=== PATIENT | male | born 1965 | race Caucasian/White ===

== ENCOUNTER 2022-12-13 10:20 | Outpatient (CLI) | payer BC, SELFPAY | END 2022-12-13 10:21 | disposition home or self-care (01) | PROVIDERS: PCP Family Medicine; Visit Provider Family Medicine | DX: Z00.00 Encounter for general adult medical examination without abnormal findings (principal); I10 Essential (primary) hypertension; E78.5 Hyperlipidemia, unspecified | CPT/HCPCS: 80048; 80061 ==

== ENCOUNTER 2024-01-12 08:43 | Outpatient (CLI) | payer BC, SELFPAY | END 2024-01-12 08:44 | disposition home or self-care (01) | PROVIDERS: PCP Family Medicine; Visit Provider Family Medicine | DX: Z00.00 Encounter for general adult medical examination without abnormal findings (principal); I10 Essential (primary) hypertension; E78.5 Hyperlipidemia, unspecified; E78.00 Pure hypercholesterolemia, unspecified; D64.9 Anemia, unspecified; K76.0 Fatty (change of) liver, not elsewhere classified; Z12.5 Encounter for screening for malignant neoplasm of prostate | CPT/HCPCS: 80053; 80061; G0103 ==

== ENCOUNTER 2025-02-11 08:28 | Outpatient (CLI) | payer MEDICARE, SELFPAY | END 2025-02-11 08:29 | disposition home or self-care (01) | PROVIDERS: PCP Family Medicine; Visit Provider Family Medicine | DX: K76.0 Fatty (change of) liver, not elsewhere classified (principal); R74.8 Abnormal levels of other serum enzymes; Z12.5 Encounter for screening for malignant neoplasm of prostate; E78.00 Pure hypercholesterolemia, unspecified | CPT/HCPCS: 80053; 80061; 86803; G0103 ==

== ENCOUNTER 2025-04-20 19:50 | Emergency (ER) | payer MEDICARE, SELFPAY ==
--- OUTSIDE RECORDS SUMMARY | 2025-04-20 19:53 | XMS_ITS | Clinical Summary ---
Author Organization [facility] Address [address] [facility] [place] [address] Care Team Providers Care Hedis Coordinator Name Role Phone Stephen Lovett MD Unavailable [phone] Ralph Gonzalez MD Primary Care Provider [phone] Stephen Lovett MD Unavailable [phone] Allergies Active AllergyReactionsCriticalityNoted DateCommentsChlorthalidoneOther (See Comments)High01/26/2021 Other Reaction(s): Passed out, seizures Low BP Medications MedicationSigDispense QuantityRefillsLast FilledStart DateEnd DateStatus valsartan (DIOVAN) 160 MG tablet Take 320 mg by mouth dailyActive omeprazole (PRILOSEC) [address] capsule Take 40 mg by mouth dailyActive sertraline (ZOLOFT) 100 MG tablet Take 200 mg by mouth dailyActive Vitamin D3 (CHOLECALCIFEROL) 25 mcg (1000 units) tablet Take 25 mcg by mouth dailyActive MAGNESIUM PO Take 1 tablet by mouth dailyActive fish oil-omega-3 fatty acids 1000 MG capsule Take 1 g by mouth dailyActive acetaminophen (TYLENOL) 325 MG tablet Take 325-650 mg by mouth every 6 hours as needed for mild painActive amLODIPine (NORVASC) 2.5 MG tablet Take 2.5 mg by mouth dailyActive atorvastatin (LIPITOR) 40 MG tablet Take 40 mg by mouth dailyActive aspirin 81 MG EC tablet Take 81 mg by mouth dailyActive azithromycin (ZITHROMAX) 250 MG tablet TAKE 2 TABLET BY ORAL ROUTE EVERY DAY FOR 1 DAY THEN 1 TABLET (250 MG) BY ORAL ROUTE ONCE DAILY FOR4 DAYS FOR BRONCHITISActive predniSONE (DELTASONE) 10 MG tablet TAKE 4 TABLETS BY MOUTH DAILY FOR 2 DAYS, THEN DECREASE BY 1 TABLET EVERY 3RD DAY UNTIL OFFActive ipratropium - albuterol 0.5 mg/2.5 mg/3 mL (DUONEB) 0.5-2.5 (3) MG/3ML neb solution Indications:Chronic obstructive pulmonary disease, unspecified COPD type (H)Take 1 vial (3 mLs) by nebulization every 6 hours as needed for shortness of breath, wheezing or cough. 90 mL 5Active albuterol (PROAIR HFA/PROVENTIL HFA/VENTOLIN HFA) 108 (90 Base) MCG/ACT inhaler Indications:Chronic obstructive pulmonary disease, unspecified COPD type (H) Inhale 2 puffs into the lungs every 4 hours as needed for shortness of breath, wheezing or cough. 18 g 1105Active fluticasone-salmeterol (ADVAIR) 500-50 MCG/ACT inhaler Indications:Chronic obstructive pulmonary disease, unspecified COPD type (H) Inhale 1 puff into the lungs 2 times daily. 1 each 5Active Active Problems ProblemNoted DateDiagnosed UkmyQzpogebkohz01/24/3516Tmxpuxjyqwbq22/24/2021 Seizure-like vsckoucs92/24/2021Left inguinal ytffya1106/18/2013 Family History Medical HistoryRelationCommentsCancerMotherllung, liver all overRelationStatus CommentsMother Social History Tobacco UseTypesPacks/DayYears UsedDateSmoking Tobacco: FormerCigarettes Smokeless Tobacco: CurrentChew Tobacco Cessation:Ready to Q uit: Not Asked; Counseling Given: Yes Alcohol UseStandard Drinks/WeekCommentsYes0 (1 standard drink = 0.6 oz pure alcohol)3 beers per dayPHQ-2AnswerDate RecordedPHQ-2 Fyybf559dolescent EducationAnswerDate RecordedGetting School Help NeededNot on file02/02/2023Sex and Gender InformationValueDate RecordedSex Assigned at BirthNot on fileLegal BvwMmyb71/04/2012 3:26 AM CSTGender IdentityNot on fileSexual OrientationNot on file Last Filed Vital Signs Vital SignReadingTime TakenCommentsBlood Jleorvmj309/8707 7:22 AM CDT Ofskm624111/26/2024 7:22 AM DHWKooawlmhouq82.1 ??C (98.7 ??F)10/27/2020 11:41 AM CDTRespiratory Kjli357405/20/2023 2:42 PM CSTOxygen Mupwlgpcaq30%11/26/2024 7:22 AM CDTInhaled Oxygen Concentration--Faxuyi60.8 kg (187 lb)11/26/2024 7:22 AM CDT Enjqjf720.3 cm (5' 11)05/20/2023 2:42 PM CSTBody Mass Index26.0805/20/2023 2:42 PM RATER ASSOCIATE Plan of Treatment Health MaintenanceDue DateLast DoneCommentsADVANCE CARE FXRGGGBN1965ANNUAL REVIEW OF HM MUNVUA30 1965COPD ACTION PLAN1965CT KQFEZNTSPLBC1965 FIT1965FLEX SIG1965 6029PMTZT1965sDNA (Cologuard)1965YEARLY PREVENTIVE VISIT04/23/19684685STFDCINTVYD66/20/1975COLORECTAL CANCER SCREENING 1975HIV ECLLTEVNW25/20/1980HEPATITIS C JPDAJSUFV89/20/1983HEPATITIS B VACCINE (1 of 3 - 19+ 3-dose series)1984DIABETES ZUKFUFFCM07/25/2024 10/27/2020, 10/26/2020, 10/26/2020, Additional history existsLUNG CANCER KTVQSLPNN52/23/5585914COVID-19 VACCINE ( season)2025 02/13/2024, 04/01/2023, 04/02/2021INFLUENZA VACCINE (#1), 3DTAP/TDAP/TD VACCINE (2 - Td or Tdap), 07/12/1999 PNEUMOCOCCAL VACCINE 50+ ISOSQOyeugkwzv96/28/6810IMHALWOQQWDdetqnfhz95/16/2024 ZOSTER OVBTRZMHyekzfvzs24/05/2024, 3PHQ-2 (once per calendar year) Vauzbvqvf71/25/2025HPV VACCINE (No Doses Required)CompletedMENINGITIS VACCINE Aged OutNo longer eligible based on patient's age to complete this topic Medical Devices ImplantedTypeAreaManufacturerDevice IdentifierShelf Expiration DateModel / Serial / LotMesh Ultrapro [id number] Implanted:Qty: 1 on 07/06/2013 [facility] AudioCatch [facility]05/03/2018UMR3 / / [id number] Procedures Procedure NamePriorityDate/TimeAssociated DiagnosisCommentsCT CHEST LUNG CANCER SCREEN LOW DOSE KCWOLIPTtukigs90/23/2024 2:33 PM CDT Personal history of tobacco use PFT GENERAL LAB ETICFTLJjjvzck69/16/2024 1:16 PM RATER ASSOCIATE COPD (chronic obstructive pulmonary disease) (H) BASIC METABOLIC AMQUYLrkphrd11/25/2021 5:12 AM CDT Seizure-like activity (H) from Last 3 Months or Most Recently Relevant to Health Maintenance Results * CT Chest Lung Cancer Scrn Low Dose wo (11/25/2023 2:33 PM CDT)Anatomical RegionLateralityModalityChest, SUBRAD CT BODY, UMP CT CHEST, RAD CTComputed TomographySpecimen (Source)Anatomical Location / LateralityCollection Method / VolumeCollection TimeReceived Time Impressions 11/25/2023 3:14 PM CDT Impression: 1. ACR Assessment Category (2021): ??Lung-RADS Category 2. Benign appearance or behavior. ?? Recommendation: ??Lung-RADS Category 2. Benign appearance or behavior. Recommendation: ??continue annual screening with Lung cancer screening CT (please order exam code [id number]). 2. Significant Incidental Finding(s): ??Category S: No. 3. Avoidance of tobacco smoke is strongly advised. Please consider referral for smoking cessation to [facility] Medication Therapy Management (MTM) if clinically appropriate. Download the LungRADS 2021 Assessment Categories table at this site: [email or web address] I have personally reviewed the examination and initial interpretation and I agree with the findings. ROSEMARY DAWSON MD Narrative 11/25/2023 3:[address] Low Dose Lung Cancer Screening History: ??Personal history of tobacco use, Screening for lung cancer. Number of packs-year of smokin Current or former smoker?: Former If former, number of years since quit?: 14 Comparison: Chest radiograph 05/20/2023 Technique: Helical acquisition low dose CT chest. Images reviewed in lung, soft tissue and bone windows. DLP: 92 (mGy*cm) CTDIvol: 2.28 (mGy) Findings: [All follow up of nodules are based on ACR guidelines for lung cancer screening and measurements of each nodule size must be the mean of the longest axial plane measurement by its perpendicular measured to the nearest decimal and rounded up to the nearest whole number. ] Nodules: 5 The largest and/or fastest 3 of these nodule(s) are as follows: - 5 ??mm solid nodule in the right lower lobe on series: ??4 image: 255. - 6 ??mm calcified nodule in the right lower lobe on series: ??4 image: 264. - 3 ??mm solid nodule in the right middle lobe on series: ??4 image: 205. Emphysema: None Coronary artery calcium: mild Additional findings: Atherosclerotic ossifications of the aortic arch. Authorizing ProviderResult TypeResult StatusMichael Kristofer Lovett MDIMG CT ORDERABLESFinal Result * General PFT Lab (Please always keep checked) (05/20/2023 1:16 PM RATER ASSOCIATE)Component ValueRef RangeTest MethodAnalysis TimePerformed AtPathologist Signature FVC-Pred4.49LBREEZE PFTFVC-Pre3.67LBREEZE PFTFVC-%Pred-Pre81%BREEZE PFT FEV1-Pre1.55LBREEZE PFTFEV1-%Pred-Pre44%BREEZE SBJHEO0XYV-Jncs59%BREEZE PFT BFJ0MRH-Yiw69%BREEZE PFTFEFMax-Pred9.59L/secBREEZE PFTFEFMax-Pre5.27L/sec BREEZE PFTFEFMax-%Pred-Pre54%BREEZE XRLNKD8673-Lewx2.02L/secBREEZE PFT EAC6388-Qkr7.44L/secBREEZE WEOHOF1113-%Pred-Pre14%BREEZE PFTExpTime-Pre12.88 secBREEZE PFTFIFMax-Pre7.08L/secBREEZE PFTVC-Pred4.64LBREEZE PFTVC-Pre3.45L BREEZE PFTVC-%Pred-Pre74%BREEZE PFTIC-Pred3.30LBREEZE PFTIC-Pre2.84LBREEZE PFT IC-%Pred-Pre86%BREEZE PFTERV-Pred1.65LBREEZE PFTERV-Pre0.61LBREEZE PFT ERV-%Pred-Pre36%BREEZE ISKTCT7TGD4-Jgul32%BREEZE ZYZVRT0UET5-Sbv93%BREEZE PFT FRCPleth-Pred3.65LBREEZE PFTFRCPleth-Pre3.59LBREEZE PFTFRCPleth-%Pred-Pre98% BREEZE PFTRVPleth-Pred2.21LBREEZE PFTRVPleth-Pre2.98LBREEZE PFT RVPleth-%Pred-Ari732%BREEZE PFTTLCPleth-Pred7.33LBREEZE PFTTLCPleth-Pre6.43L BREEZE PFTTLCPleth-%Pred-Pre87%BREEZE PFTDLCOunc-Pred28.74ml/min/mmHgBREEZE PFTDLCOunc-Pre21.05ml/min/mmHgBREEZE PFTDLCOunc-%Pred-Pre73%BREEZE PFTVA-Pre 5.54LBREEZE PFTVA-%Pred-Pre81%BREEZE SQBHRZ8BFL-Zotb97%BREEZE HKQZCQ0BCY-Hbd84 %BREEZE PFTAnatomical RegionLateralityModalityOtherSpecimen (Source)Anatomical Location / LateralityCollection Method / VolumeCollection TimeReceived Time 05/20/2023 1:16 PM RATER ASSOCIATE Narrative 05/21/2023 7:24 PM RATER ASSOCIATE The FEV1 and FEV1/FVC ratio are below normal limits, but the FVC is within normal limits. The diffusing capacity is below normal limits. However, the diffusing capacity was not corrected for the patient's hemoglobin. TLC and RV are within normal limits. IMPRESSION: Moderate airflow obstruction. Mild diffusion defect. However, the diffusing capacity was not corrected for the patient's hemoglobin. Normal lung volumes. ?This interpretation has been electronically signed: ??MARSHA CHOWDARY 05/21/2023 ??07:01:14 PM? Authorizing ProviderResult TypeResult StatusMichael Kristofer Lovett [facility] ORDERABLESFinal Result * (ABNORMAL) Basic metabolic panel (10/27/2020 5:12 AM CDT)ComponentValueRef RangeTest MethodAnalysis TimePerformed AtPathologist TprofwpzaLrxlrp177(L)133 - 144 mmol/L10/27/2020 6:40 AM [facility]ALTHPotassium3.73.4 - 5.3 mmol/L10/27/2020 6:40 AM [facility]ALTHChloride9694 - 109 mmol/L10/27/2020 6:40 AM [facility]Comment:Results confirmed by repeat testCarbon Caevwtl2971 - 32 mmol/L10/27/2020 6:40 AM [facility]ALTHAnion Gap43 - 14 mmol/L10/27/2020 6:40 AM [facility]ALTHGlucose108(H)70 - 99 mg/dL10/27/2020 6:40 AM [facility]ALTHUrea Bgfozppo516 - 30 mg/dL10/27/2020 6:40 AM [facility]ALTHCreatinine0.740.66 - 1.25 mg/dL10/27/2020 6:40 AM [facility]ALTHGFR Estimate>90>60 mL/min/{1.73_m2}10/27/2020 6:40 AM [facility]ALTHComment: Non GFR Calc Starting 04/21/2018, serum creatinine based estimated GFR (eGFR) will be calculated using the Chronic Kidney Disease Epidemiology Collaboration (CKD-EPI) equation. GFR Estimate If Black>90>60 mL/min/{1.73_m2}10/27/2020 6:40 AM [facility]Comment: GFR Calc Starting 04/21/2018, serum creatinine based estimated GFR (eGFR) will be calculated using the Chronic Kidney Disease Epidemiology Collaboration (CKD-EPI) equation. Calcium8.98.5 - 10.1 mg/dL10/27/2020 6:40 AM [facility]ITALpecimen (Source)Anatomical Location / LateralityCollection Method / VolumeCollection TimeReceived NchkBfzxt26/25/2021 5:12 AM CDT10/27/2020 5:13 AM CDT Narrative Authorizing ProviderResult TypeResult StatusPatricia WHITT - BLOOD ORDERABLESFinal ResultPerforming OrganizationAddressCity/State/ZIP CodePhone Number [facility] [address] [id number] [phone] from Last 3 Months or Most Recently Relevant to Health Maintenance Insurance * Guarantor: Margarita Malave TypeRelation to PatientDate of BirthPhone Billing AddressPersonal/JwjufzNedh1965 [address] [place] [address] * Guarantor: Margarita Malave TypeRelation to PatientDate of BirthPhone Billing AddressPersonal/PifxyrIhtk1965 [address] [place] [address] Advance Directives For more information, please contact: [phone] * Full Code (Latest Code Status on File) Date ActivatedDate InactivatedComments10/27/2020 11:23 AMQuestionAnswerComments Code status determined by:* Discussion with patient/ legal decision maker * Full Code Date ActivatedDate InactivatedComments10/26/2020 12:34 PM10/27/2020 11:23 AMAll basic and advanced life-sustaining interventions are performed as appropriate QuestionAnswerCommentsCode status determined by:* Discussion with patient/ legal decision maker Care Teams Team MemberRelationshipSpecialtyStart DateEnd Date Ralph Gonzalez MD [facility] [address] [place] [address] PCP - GeneralFamily Medicine10/22/23 Stephen Lovett MD [address] [place] [address] MDCritical Care02/05/23 Stephen Lovett MD [address] [place] [address] Assigned Pulmonology Ztjftzqj49/23/24
--- OUTSIDE RECORDS SUMMARY | 2025-04-20 19:53 | XMS_ITS | Clinical Summary ---
Author Organization [facility] Address [address] [place] [address] Care Team Providers Care Weigher And Charger Name Role Phone Jacky Gonzalez MD Primary Care Provider [phone] Allergies Active AllergyReactionsCriticalityNoted DateCommentsChlorthalidoneHypokalemia High01/26/2021 Low BP Medications MedicationSigDispense QuantityRefillsLast FilledStart DateEnd DateStatus omeprazole (PRILOSEC) 20 mg Delayed-Release capsule Indications:Iron deficiency anemia, unspecified iron deficiency,Lower abdominal pain,Colon polyp,Diverticulosis of large intestine without hemorrhageTake 40 mg by mouth once daily before a meal. 30 capsule ctive valsartan (DIOVAN) 160 mg tablet Take 160 mg by mouth once daily.Active amLODIPine (Norvasc) 2.5 mg tablet Take 2.5 mg by mouth once daily.Active atorvastatin (LIPITOR) 40 mg tablet Take 40 mg by mouth once daily.Active sertraline (ZOLOFT) 100 mg tablet Take 100 mg by mouth once daily.Active aspirin (ECOTRIN) 81 mg enteric coated tablet Take 81 mg by mouth once daily.Active ibuprofen (ADVIL; MOTRIN) 600 mg tablet Indications:Complex tear of medial meniscus, current injury, right knee, initial encounterTake 1 Tablet (600 mg) by mouth every 6 hours if needed for Pain. Maximum of 3200 mg in 24 hours. 30 Tablet 01/31/2021ctive Crutch Indications:Complex tear of medial meniscus, current injury, right knee, initial encounterFor home use. 2 Each 01/31/2021ctive traMADoL (ULTRAM) 50 mg tablet Indications:Complex tear of medial meniscus, current injury, right knee, initial encounterTake 1 Tablet (50 mg) by mouth every 6 hours if needed for Pain. 15 Tablet 1Active Active Problems ProblemNoted DateDiagnosed DateComplex tear of medial meniscus, current injury, right knee, initial gbenicojn55/28/2021Acute gout of left foot05/22/2018 Essential ibxmqstqknox96/18/2019Colon polyp03/24/2015 Overview (03/24/2015): Colonoscopy 03/2015 polyps repeat in 5 years Family History Medical HistoryRelationNameCommentsUnknownFatherUnknownMotherRelationNameStatus CommentsFatherAliveMotherDeceased Social History Tobacco UseTypesPacks/DayYears UsedDateSmoking Tobacco: MclbsaQoncwtraze6Ypyg: 05/05/2009Smokeless Tobacco: Current Tobacco Cessation:Ready to Q uit: No Alcohol UseStandard Drinks/WeekCommentsYes0 (1 standard drink = 0.6 oz pure alcohol)Sex and Gender InformationValueDate RecordedSex Assigned at BirthNot on fileLegal XzyJuhh8305/18/2012 6:18 AM CSTGender IdentityNot on fileSexual OrientationNot on file Last Filed Vital Signs Vital SignReadingTime TakenCommentsBlood Fknzobfj947/9701/31/2021 10:29 AM CDTDr Tai aware of BP,norah Gonzalez to send wksoBkxlk6852/29/2021 10:29 AM CDT Jtnnlhzgpco85.9 ??C (98.4 ??F)01/31/2021 10:29 AM CDTRespiratory Rate18 01/31/2021 10:29 AM CDTOxygen Esvgwyfwgj90%01/31/2021 10:29 AM CDTInhaled Oxygen Concentration--Czvlxw55.7 kg (169 lb)01/31/2021 7:45 AM WIKXtmqkh921.3 cm (5' 11)01/26/2021 11:00 AM CDTBody Mass Index23.57001/26/2021 11:00 AM CDT Plan of Treatment Health MaintenanceDue DateLast DoneCommentsTetanus uewbfpx7504/23/1976Depression screening for age 12+1977HIV for age 15-6504/23/1980Hepatitis C screening for age 18-7904/23/1983Hepatitis B series for 19+ (1 of 3 - 19+ 3-dose series) 1984Lipids for age 45-7504/23/2010Pneumococcal series for age 50+ (1 of 1 - PCV)2015Zoster (shingles) series for age 50+ (1 of 2)2015BMI (ht and wt on same day) for age 18+COVID-19 vaccine series (1 - 2024-26 season)2025Influenza Vaccine (#1)2025olonoscopy through age RSV vaccine for adults or (1 - 1-dose 75+ series)2040 Insurance * Guarantor: Margarito Malave TypeRelation to PatientDate of BirthPhone Billing AddressPersonal/XjrjrrTxav1965 [address] [place] [address] * Guarantor: Margarito Malave TypeRelation to PatientDate of BirthPhone Billing AddressPersonal/IicborMhon[address] [place] [address] [place] [address] Advance Directives * Full Code (Latest Code Status on File) Date ActivatedDate InactivatedComments01/31/2021 7:28 AM01/31/2021 2:27 PMQuestion AnswerCommentsCode Status Discussion:* Not Discussed Care Teams Team MemberRelationshipSpecialtyStart DateEnd Date Jacky Gonzalez MD PCP - [facility]/26/21
[2025-04-20 20:00] VITALS: BP 165/96; PULSE 91; RESP 16; TEMP 36.8; O2SAT 95; BMI 25.1
--- NOTE | 2025-04-20 20:39 | ED.SYNCOPE ---
HPI - Syncope General Chief Complaint: Syncope/Fainted Stated Complaint: COPD, passed out Time Seen by Provider: 04/20/25 19:56 History of Present Illness HPI narrative: This 59-year-old male comes in with his reporting a brief loss of consciousness that happened when he had a coughing fit. He states that he has COPD and did quit smoking about 20 years ago. He states over the past 2 or 3 years he does have occasions where he coughs up a fair amount of mucus. Today he had uncontrolled coughing to where he grew lightheaded and had brief loss of consciousness. When he did lose consciousness his states that he stopped coughing and very quickly recovered. He states that he feels normal now and arrives here with normal vital signs. He reports that he does use a cough medicine as needed. Related Data Home Medications ?Medication ?Instructions ?Recorded ?Confirmed ipratropium 0.5 mg-albuterol 3 mg 3 ml inhalation QID PRN 09/22/24 04/20/25 (2.5 mg base)/3 mL nebulization soln fluoride (sodium) 1.1 % dental gel PO QPM 02/11/25 02/11/25 fluticasone 500 mcg-salmeterol 50 1 ea inhalation BID 02/11/25 04/20/25 mcg/dose blistr powdr for inhalation Previous Rx's ?Medication ?Instructions ?Recorded albuterol sulfate 90 mcg/actuation 2 puff inhalation Q6H PRN 05/24/24 aerosol inhaler shortness of breath or wheezing #8.5 grams amlodipine 10 mg tablet 10 mg PO QDAY #90 tabs 02/11/25 atorvastatin 40 mg tablet 40 mg PO QPM #90 tabs 02/11/25 sertraline 100 mg tablet 200 mg (2 x 100 mg) PO QDAY #180 02/11/25 tabs spironolactone 25 mg tablet 25 mg PO QDAY #90 tabs 02/11/25 valsartan 320 mg tablet 320 mg PO DAILY #90 ea 02/11/25 omeprazole 40 mg capsule,delayed 40 mg PO QDAY #90 caps 02/14/25 release azithromycin 250 mg tablet See Rx Instructions PO .COMPLEX #6 03/14/25 tabs prednisone 20 mg tablet 40 mg (2 x 20 mg) PO QDAY #10 tabs 03/14/25 Allergies Allergy/AdvReac Type Severity Reaction Status Date / Time chlorthalidone Allergy Severe Passed Verified 02/11/25 07:53 out, seizures Review of Systems Status of ROS: Reports: 10 or more systems reviewed and unremarkable except as noted in History and below Narrative: Constitutional: No fevers, no weight gain or loss. Eyes: No discharge. No vision changes. HENT: No congestion, no sore throat, no ear pain. Cardiovascular: No chest pain, no palpitations. Respiratory: No shortness of breath, no wheezes. Coughing as described above. Gastrointestinal: No abdominal pain, no vomiting, no diarrhea. Genitourinary: No dysuria, no hematuria. Musculoskeletal: Normal range of motion. Skin: No rashes, no pruritis. Neurological: No dizziness, weakness, sensory change, speech change. Endo/Heme/Allergies: No bruising or bleeding. No polydipsia. Pysch: no suicidality, no anxiety, no insomnia. All other systems reviewed and are negative. PFSH PFSH Medical History History of smoking ?Z87.891 - Personal history of nicotine dependence (ICD-10) Health care directive on file ?Z78.9 - Other specified health status (ICD-10) Surgical History S/P left inguinal hernia repair ?Z98.890 - Other specified postprocedural states (ICD-10) ?Z87.19 - Personal history of other diseases of the digestive system (ICD-10) H/O elbow surgery ?Z98.890 - Other specified postprocedural states (ICD-10) S/P cervical spinal fusion ?Z98.1 - Arthrodesis status (ICD-10) Social History (Updated 02/14/25 @ 14:39 by Dana Carlos ~ [facility]) Narrative: Occupation: Owns [employer] Former smoker, quit 2011, smoked 45 years. 2-3 beers/day Retired 2 adult children Walks 7 days a week What is your current living situation?: I presently have a place to live Problems where you live: no known problems In the past 12 months, utilities in danger of being shut off: no In past 12 months, lack of transportation kept you from medical appts, meetings, work, or getting things needed for daily living: no In the past 12 mos, have been you worried that your food would run out before you had money to buy more?: never true In the past 12 mos, the food you bought just didn't last and you didn't have money to buy more?: never true Highest level of school completed/degree received: high school graduate Physical activity type: walking How many days of moderate to strenuous exercise, like a brisk walk, did you do in the last 7 days: 7 Smoking Status: Former smoker Do you use any of these nicotine containing products: None Second hand tobacco smoke exposure: No How many standard drinks containing alcohol do you have on a typical day: 1 or 2 AUDIT-C Alcohol total score: 0 Non-prescribed substance use: denies use Are you now , , , , never or living with a partner: Social isolation score (0-1 are the most socially isolated patients): 1 How often does anyone, including family, friends and others, physically hurt you: never How often does anyone, including family, friends and others, insult or talk down to you: never How often does anyone, including family, friends and others, threaten you with harm: never How often does anyone, including family, friends and others, scream or curse at you: never Do you think of yourself as: straight/heterosexual Gender Identity: male Are you currently sexually active: Yes Exam Narrative: Exam Narrative: Constitutional: Well-developed, well-nourished, no acute distress. HEENT: Normocephalic, atraumatic. Neck: Normal range of motion. Nontender. Supple. Heart: Regular. No murmurs. Normal rate. Intact distal pulses. Lungs: Clear to auscultation. No chest discomfort. No wheezes, rhonchi, or rales. Abdomen: Normal bowel sounds. Nontender. No rebound tenderness. Genitalia: Deferred. Back: No midline tenderness. Normal range of motion. Extremities: Normal range of motion. No injury. Skin: Intact. No rash. Warm. No erythema or pallor. Neurologic: No altered sensation. No weakness. Alert and oriented. Psychiatric: No suicidality. No anxiety or depression. No insomnia. Nursing notes and vitals signs are reviewed. Const: Vital Signs, click to edit/add: Vital Signs - 24 hr 04/20/25 20:00 Temperature 98.2 F Pulse Rate [Pulse Oximeter] 91 Respiratory Rate 16 Blood Pressure [Ri ght Upper Arm] 165/96 H Pulse Oximetry 95 Oxygen Delivery Me thod Room Air Course Vital Signs Vital signs: Initial Vital Signs Temperature 98.2 F 04/20/25 20:00 Temperature Source Temporal Artery Scan 04/20/25 20:00 Pulse Rate 91 04/20/25 20:00 Respiratory Rate 16 04/20/25 20:00 Blood Pressure 165/96 H 04/20/25 20:00 Blood Pressure Mean 119 H 04/20/25 20:00 Blood Pressure Position Sitting 04/20/25 20:00 Pulse Oximetry 95 04/20/25 20:00 Oxygen Delivery Method Room Air 04/20/25 20:00 Vital Signs Temperature 98.2 F 04/20/25 20:00 Pulse Rate 91 04/20/25 20:00 Respiratory Rate 16 04/20/25 20:00 Blood Pressure 165/96 H 04/20/25 20:00 Pulse Oximetry 95 04/20/25 20:00 Oxygen Delivery Method Room Air 04/20/25 20:00 Temperature 98.2 F 04/20/25 20:00 Pulse Rate 91 04/20/25 20:00 Respiratory Rate 16 04/20/25 20:00 Blood Pressure 165/96 H 04/20/25 20:00 Pulse Oximetry 95 04/20/25 20:00 Oxygen Delivery Method Room Air 04/20/25 20:00 MDM - Syncope MDM Narrative Medical decision making narrative: This patient comes in for evaluation of a syncopal event that occurred well vigorously coughing. He feels back to normal at this time. He states that he could not stop coughing and had difficulty catching his breath. These circumstances caused a decrease apply of oxygen glucose to his brain temporarily. He very quickly recovered. He was in sitting position when this occurred and did not fall or hurt himself. I did describe labs and imaging options and the patient and his declined these in a process of shared decision making. The patient is not on any medications that would contribute to these symptoms. He does not report any new signs or symptoms of infection. He feels back to normal. He is okay to be discharged home. I did give advice regarding what to do if symptoms are recurrent or worsening. Discharge Plan Discharge Clinical Impression: Vasovagal syncope COPD (chronic obstructive pulmonary disease) Qualifiers: COPD type: chronic bronchitis Chronic bronchitis type: mucopurulent Qualified Code(s): J41.1 - Mucopurulent chronic bronchitis Patient Disposition: Home w/ Parent or Adult Condition: Improved Additional Instructions: Continue current plans. Use [id number] cough medicines as needed and directed. Consider using Sudafed as a decongestant if needed. Follow up with MD return if symptoms are recurrent or worsening. Prescriptions: No Action fluticasone propion-salmeterol 500-50 mcg/dose blister with device 1 ea inhalation BID fluoride (sodium) 1.1 % gel PO QPM amlodipine 10 mg tablet 10 mg PO QDAY Qty: 90 3RF atorvastatin 40 mg tablet 40 mg PO QPM Qty: 90 3RF sertraline 100 mg tablet 200 mg PO QDAY Qty: 180 3RF spironolactone 25 mg tablet 25 mg PO QDAY Qty: 90 3RF valsartan 320 mg tablet 320 mg PO DAILY Qty: 90 3RF albuterol sulfate 90 mcg/actuation HFA aerosol inhaler 2 puff inhalation Q6H PRN (Reason: shortness of breath or wheezing) Qty: 8.5 5RF ipratropium-albuterol 0.5 mg-3 mg(2.5 mg base)/3 mL solution for nebulization 3 ml inhalation QID PRN omeprazole 40 mg capsule,delayed release(DR/EC) 40 mg PO QDAY Qty: 90 3RF azithromycin 250 mg tablet See Rx Instructions PO .COMPLEX Qty: 6 0RF Rx Instructions: For 250 mg dose pack: take 500 mg today (day 1), then 250 mg for 4 days (days 2-5) PO prednisone 20 mg tablet 40 mg PO QDAY Qty: 10 0RF Follow Up/Referrals: Jacky Goznalez MD [Primary Care Provider, Family Practice] Stand Alone Forms: [employer] Info Instructions
== END 2025-04-20 20:58 | disposition home or self-care (01) ==
PROVIDERS: Emergency Provider Emergency Medicine Emergency Medical Services; PCP Family Medicine
DX: R55 Syncope and collapse (principal); J41.1 Mucopurulent chronic bronchitis; Z87.891 Personal history of nicotine dependence
CPT/HCPCS: 99283; 99284